=== PATIENT | female | born 1935 | race Caucasian/White ===

== ENCOUNTER 2017-09-11 09:47 | Emergency (ER) | payer MEDICARE, MEDICAID ==
[~2017-09-11] VITALS: Ht 157.5 cm; Wt 47.3 kg
[~2017-09-11 09:47] MED LIST: ALLEGRA 180MG180 MG PO; ASPIRIN 81M81 MG/TA2 PO; ATIVAN 0.50.5 MG/TAB PO; BENTYL 20MG20 MG/TAB PO; BREO IH; CALCIUM + D 6001 TA1 PO; CIPRO 500MG TA500 MG PO; CLARITIN 1010 MG/TAB PO; DIFLUCAN 100MG100 MG PO; DILANTIN 100MG100 MG PO; FLAGYL500 MG PO; FLAXSEED OIL1 CAP; FORTICAL200 IU/ACT NS; LEVAQUIN 5500 MG/TA1 PO; MIRALAX PA17 GM/Dose PO; NORCO 325 MG-51 TAB PO; OCUVITE1 TA1 PO; PHENOBARBITAL32.4 MG PO; PRAVACHOL 40MG40 MG PO; PRIL40 PO; PROAIR HFA0.09 MG/AC IH; REGLAN 10MG10 MG/TAB PO; REMERON 15M15 MG/TA1 PO; RT ADVAIR 228 DISKUS IH; RT SPIRIVA18 MCG IH; SINGULAIR 110 MG/TAB PO; TEARS NATURALE15 M1 OP; VITAMIN D2000 I1 PO; XANAX .25M0.25 MG/TA PO; ZITHROMAX 250M250 MG PO; ZOFRAN 4MG T4 MG/TAB PO; ZYRTEC 10MG10 MG PO; ZYRTEC5 MG PO; [UNRECOGNIZED DRUG - OTHER] OP
[2017-09-11 09:58] VITALS: TEMP 98
[2017-09-11] MEDS ORDERED: NORVASC 5MG5 MG/TAB PO (11:18)
[2017-09-11 11:40] LABS: BASO # 0.1 (0.0-0.2); BASO % 0.7 % (0.0-2.0); EOS # 0.1 (0.0-0.7); EOS % 0.7 % (0-4.0); GRAN # 9.3 (1.4-6.5); GRAN % 75.5 % (42.2-75.2); HEMATOCRIT 43.3 % (37.0-47.0); HEMOGLOBIN 14.3 g/dl (12.5-16.0); LYMPH # 1.9 (1.2-3.4); LYMPH % 15.4 % (20.0-51.0); MEAN CELL VOLUME 96 fl (80.0-100.0); MEAN CORPUSCULAR HEMOGLOBIN 32 pg (27.0-31.0); MEAN CORPUSCULAR HGB CONC 33 g/dl (33.0-37.0); MEAN PLATELET VOLUME 10.7 fl (7.4-10.4); MONO # 0.9 (0.1-0.6); MONO % 7.1 % (1.7-9.3); PLATELET COUNT 251 K/mm3 (130-400); RED BLOOD COUNT 4.53 M/mm3 (4.10-5.30); WHITE BLOOD COUNT 12.4 K/mm3 (4.8-10.8)
[2017-09-11 11:45] LABS: COLLECTION METHOD CLEAN CATCH
[2017-09-11 11:58] LABS: PH 7 (5-8); SQUAMOUS EPITHELIAL None Seen /hpf; URINE APPEARANCE Clear; URINE BACTERIA None Seen /hpf; URINE BILIRUBIN Negative (NEGATIVE); URINE BLOOD 2+ (NEGATIVE); URINE COLOR Straw; URINE GLUCOSE Negative (NEGATIVE); URINE KETONE Negative (NEGATIVE); URINE LEUKOCYTE ESTERASE Negative (NEGATIVE); URINE PROTEIN(semi-quant) Negative (NEGATIVE); URINE RBC 0-2 /hpf; URINE UROBILINOGEN Negative (NEGATIVE); URINE WBC 0-2 /hpf
[2017-09-11 11:59] LABS: ALANINE AMINOTRANSFERASE 24 U/L (9-52); ALBUMIN 4.9 gm/dL (3.5-5.0); ALKALINE PHOSPHATASE 136 U/L (50-136); ANION GAP 11 mmol/L (7-16); BILIRUBIN,TOTAL 0.9 mg/dL (0.0-1.0); BLOOD UREA NITROGEN 12 mg/dL (7-17); C-REACTIVE PROTEIN < 0.5 mg/dL (0.0-0.9); CALCIUM 9.7 mg/dL (8.4-10.2); CARBON DIOXIDE 24 mmol/L (22-30); CHLORIDE 103 mmol/L (98-107); CREATININE, serum 0.65 mg/dL (0.52-1.25); GLUCOSE 108 mg/dL (74-106); SODIUM 138 mmol/L (137-145); TOTAL PROTEIN 8.1 gm/dL (6.4-8.2)
[2017-09-11 13:38] VITALS: BP 149/78; PULSE 71
== END 2017-09-11 13:38 | disposition home or self-care (01) ==
LOC: COL.ER 09:47
PROVIDERS: Emergency Medicine
DX: K58.9 Irritable bowel syndrome, unspecified (principal); K59.00 Constipation, unspecified; I10 Essential (primary) hypertension; Z90.49 Acquired absence of other specified parts of digestive tract; Z79.82 Long term (current) use of aspirin
CPT/HCPCS: J1885; J7030; J7050; Q9967

== ENCOUNTER 2018-08-16 11:30 | Inpatient (IN) | payer MEDICARE, MEDICAID ==
[~2018-08-16] VITALS: Ht 157.5 cm; Wt 46.9 kg
[~2018-08-16 11:30] MED LIST changes: +NORVASC 5MG5 MG/TAB PO
[2018-08-16] MEDS ORDERED: TRAVATAN Z 5 ML5 ML OU (13:20)
[2018-08-16] MEDS ORDERED: BETIMOL 0.5% OPH5 ML OU (13:20)
[2018-08-16] MEDS ORDERED: TYLENOL 325MG325 MG PO (13:21)
[2018-08-16] MEDS ORDERED: ULTRAM 50MG TAB50 MG PO (13:23)
[2018-08-16] MEDS ORDERED: DECADRON 4MG TAB4 MG PO (13:24)
[2018-08-16 13:48] LABS: COLLECTION METHOD CLEAN CATCH
[2018-08-16 13:50] LABS: BASO % 0.1 % (0.0-2.0); GRAN # 18.1 (1.4-6.5); GRAN % 85.1 % (42.2-75.2); HEMATOCRIT 39.3 % (37.0-47.0); HEMOGLOBIN 12.8 g/dl (12.5-16.0); LYMPH # 1.8 (1.2-3.4); LYMPH % 8.6 % (20.0-51.0); MEAN CELL VOLUME 94 fl (80.0-100.0); MEAN CORPUSCULAR HEMOGLOBIN 31 pg (27.0-31.0); MEAN CORPUSCULAR HGB CONC 33 g/dl (33.0-37.0); MEAN PLATELET VOLUME 10.3 fl (7.4-10.4); MONO % 4.9 % (1.7-9.3); PLATELET COUNT 349 K/mm3 (130-400); REDCELL DISTRIBUTION WIDTH-CV 13.7 % (11.5-14.5)
[2018-08-16 13:56] LABS: MUCOUS Present /lpf; PH 7 (5-8); SQUAMOUS EPITHELIAL None Seen /hpf; URINE APPEARANCE Clear; URINE BACTERIA None Seen /hpf; URINE BILIRUBIN Negative (NEGATIVE); URINE BLOOD 1+ (NEGATIVE); URINE COLOR Yellow; URINE GLUCOSE Negative (NEGATIVE); URINE KETONE Negative (NEGATIVE); URINE LEUKOCYTE ESTERASE Negative (NEGATIVE); URINE NITRATE Negative (NEGATIVE); URINE PROTEIN(semi-quant) Negative (NEGATIVE); URINE UROBILINOGEN Negative (NEGATIVE)
[2018-08-16 14:03] LABS: ALANINE AMINOTRANSFERASE 23 U/L (9-52); ALBUMIN 4.2 gm/dL (3.5-5.0); ALKALINE PHOSPHATASE 106 U/L (50-136); ANION GAP 7 mmol/L (7-16); AST,SGOT 26 U/L (15-37); BILIRUBIN,TOTAL 0.5 mg/dL (0.0-1.0); BLOOD UREA NITROGEN 19 mg/dL (7-17); C-REACTIVE PROTEIN 0.9 mg/dL (0.0-0.9); CALCIUM 9.4 mg/dL (8.4-10.2); CARBON DIOXIDE 30 mmol/L (22-30); CHLORIDE 93 mmol/L (98-107); CREATININE, serum 0.64 mg/dL (0.52-1.25); GLUCOSE 115 mg/dL (74-106); POTASSIUM 4.6 mmol/L (3.4-5.0); SODIUM 130 mmol/L (137-145); TOTAL PROTEIN 7.6 gm/dL (6.4-8.2)
[2018-08-16 14:31] LABS: PHENYTOIN (DILANTIN) < 3.0 ug/mL (10.0-20.0)
[2018-08-16 20:50] VITALS: BP 153/75; PULSE 73; TEMP 97.9
[2018-08-17] VITALS (7 sets, daily range): BP systolic 134–151; BP diastolic 57–73; PULSE 70–82; TEMP 97.7–98.4
[2018-08-18 00:14] VITALS: BP 138/83; PULSE 70; TEMP 97.7
[2018-08-18 04:10] VITALS: BP 157/59; PULSE 64; TEMP 98.1
[2018-08-18 06:17] LABS: CALCIUM 8.6 mg/dL (8.4-10.2); CREATININE, serum 0.5 mg/dL (0.52-1.25); MAGNESIUM 2.3 mg/dL (1.6-2.3)
[2018-08-18 06:24] LABS: PRE ALBUMIN 19.8 mg/dL (17.6-36.0)
[2018-08-18 06:40] LABS: HEMOGLOBIN 11.9 g/dl (12.5-16.0); MEAN CELL VOLUME 94 fl (80.0-100.0); MEAN CORPUSCULAR HEMOGLOBIN 31 pg (27.0-31.0); MEAN CORPUSCULAR HGB CONC 33 g/dl (33.0-37.0); MEAN PLATELET VOLUME 11.2 fl (7.4-10.4); PLATELET COUNT 281 K/mm3 (130-400); RED BLOOD COUNT 3.83 M/mm3 (4.10-5.30); REDCELL DISTRIBUTION WIDTH-CV 13.7 % (11.5-14.5)
[2018-08-18 06:41] LABS: HEMATOCRIT 36.1 % (37.0-47.0)
[2018-08-18 07:34] LABS: BAND 5 % (0-10); BASOPHIL 1 % (0-2); LYMPHOCYTE 24 % (20.0-51.0); METAMYELOCYTE 1 % (0-0); NEUTROPHILS 65 % (42.0-75.2); PLATELET ESTIMATE NORMAL (NORMAL)
[2018-08-18 08:17] VITALS: BP 146/67; PULSE 66; TEMP 98
[2018-08-18 11:32] VITALS: BP 127/73; PULSE 93; TEMP 97.7
[2018-08-18 16:09] VITALS: BP 155/63; PULSE 70; TEMP 97.9
[2018-08-18 21:44] VITALS: BP 164/73; PULSE 63; TEMP 98.2
[2018-08-19 04:45] VITALS: BP 140/71; PULSE 67; TEMP 98.2
[2018-08-19 06:54] LABS: HEMATOCRIT 37.1 % (37.0-47.0); HEMOGLOBIN 12.2 g/dl (12.5-16.0); MEAN CELL VOLUME 93 fl (80.0-100.0); MEAN CORPUSCULAR HEMOGLOBIN 31 pg (27.0-31.0); MEAN CORPUSCULAR HGB CONC 33 g/dl (33.0-37.0); MEAN PLATELET VOLUME 11.1 fl (7.4-10.4); PLATELET COUNT 300 K/mm3 (130-400); RED BLOOD COUNT 3.98 M/mm3 (4.10-5.30); REDCELL DISTRIBUTION WIDTH-CV 13.7 % (11.5-14.5)
[2018-08-19 07:05] VITALS: BP 152/77; PULSE 80; TEMP 98.2
[2018-08-19 07:13] LABS: CALCIUM 8.6 mg/dL (8.4-10.2); CREATININE, serum 0.51 mg/dL (0.52-1.25); POTASSIUM 3.7 mmol/L (3.4-5.0)
[2018-08-19 07:39] LABS: EOSINOPHIL 1 % (0-4); LYMPHOCYTE 35 % (20.0-51.0); NEUTROPHILS 54 % (42.0-75.2); PLATELET ESTIMATE NORMAL (NORMAL)
[2018-08-19] MEDS ORDERED: FLOMAX 0.40.4 MG/CAP PO (09:42)
[2018-08-19] MEDS ORDERED: DULCOLAX S10 MG/SUPP RC (09:43)
[2018-08-19] MEDS ORDERED: COLACE 100100 MG/CAP PO (09:43)
[2018-08-19] MEDS ORDERED: SENNA-LAX8.6 MG PO (09:43)
[2018-08-19] MEDS ORDERED: DECADRON 1MG TAB1 MG PO (09:46)
[2018-08-19] MEDS ORDERED: ATIVAN 0.50.5 MG/TAB PO (09:47)
[2018-08-19] MEDS ORDERED: ULTRAM 50MG TAB50 MG PO (09:48)
[2018-08-19 11:13] VITALS: BP 130/62; PULSE 78; TEMP 97.8
[2018-08-19] MEDS ORDERED: REFRESH OPTIVE10 M2 OP (12:15)
[2018-08-19] MEDS ORDERED: IPRATROPIUM BROM3 M1 IH (12:24)
[2018-08-19 13:38] VITALS: BP 130/62; PULSE 78; TEMP 97.8
== END 2018-08-19 13:53 | disposition home or self-care (01) | DRG 392 ==
LOC: COL.ER 11:30 → OB 18:45 → MEDICAL 08-17 11:45
PROVIDERS: Emergency Medicine; Internal Medicine; Physician Assistant
DX: K59.09 Other constipation (principal); E87.1 Hypo-osmolality and hyponatremia; E44.0 Moderate protein-calorie malnutrition; Z68.1 Body mass index [BMI] 19.9 or less, adult; K31.89 Other diseases of stomach and duodenum; R33.0 Drug induced retention of urine; T40.4X5A Adverse effect of other synthetic narcotics, initial encounter; D32.0 Benign neoplasm of cerebral meninges; R29.6 Repeated falls; Z91.81 History of falling; E87.8 Other disorders of electrolyte and fluid balance, not elsewhere classified; I10 Essential (primary) hypertension; J44.9 Chronic obstructive pulmonary disease, unspecified; G40.909 Epilepsy, unspecified, not intractable, without status epilepticus; D72.828 Other elevated white blood cell count; T38.0X5A Adverse effect of glucocorticoids and synthetic analogues, initial encounter; H35.30 Unspecified macular degeneration
CPT/HCPCS: 99222-AI; 99232-AI; 99239; J1650; J2212; J2405; J7030; J8540; Q9967

== ENCOUNTER → 2018-12-23 | Outpatient (REF) ==
[~2018-12-23] MED LIST changes: +BETIMOL 0.5% OPH5 ML OU; +COLACE 100100 MG/CAP PO; +DECADRON 1MG TAB1 MG PO; +DECADRON 4MG TAB4 MG PO; +DULCOLAX S10 MG/SUPP RC; +FLOMAX 0.40.4 MG/CAP PO; +IPRATROPIUM BROM3 M1 IH; +REFRESH OPTIVE10 M2 OP; +SENNA-LAX8.6 MG PO; +TRAVATAN Z 5 ML5 ML OU; +TYLENOL 325MG325 MG PO; +ULTRAM 50MG TAB50 MG PO
[2018-12-25 08:45] LABS: COLLECTION METHOD CLEAN CATCH
[2018-12-25 10:16] LABS: URINE COLOR Yellow
[2018-12-25 10:17] LABS: PH 5 (5-8); URINE APPEARANCE Cloudy; URINE BILIRUBIN Negative (NEGATIVE); URINE BLOOD 2+ (NEGATIVE); URINE GLUCOSE Negative (NEGATIVE); URINE KETONE Negative (NEGATIVE); URINE NITRATE Negative (NEGATIVE); URINE PROTEIN(semi-quant) Negative (NEGATIVE); URINE UROBILINOGEN Negative (NEGATIVE)
[2018-12-25 10:18] LABS: MUCOUS Present /lpf; URINE LEUKOCYTE ESTERASE 3+ (NEGATIVE); URINE WBC >50 /hpf
== END ==
LOC: COL.LAB 08:42
PROVIDERS: Family Medicine
DX: R33.9 Retention of urine, unspecified (principal)

== ENCOUNTER 2019-01-04 18:44 | Inpatient (IN) | payer MEDICARE, MEDICAID ==
[~2019-01-04] VITALS: Ht 152.4 cm; Wt 49.5 kg
[2019-01-04] VITALS (43 sets, daily range): BP systolic 180; BP diastolic 96; PULSE 102; TEMP 98.6; O2SAT 91–97
[2019-01-04] MEDS ORDERED: STOOL SOFTENER240 M1 PO (19:26)
[2019-01-04 19:28] LABS: BASO # 0.1 (0.0-0.2); BASO % 0.6 % (0.0-2.0); EOS # 0.1 (0.0-0.7); EOS % 1.2 % (0-4.0); GRAN # 7.1 (1.4-6.5); GRAN % 72.3 % (42.2-75.2); HEMATOCRIT 39.5 % (37.0-47.0); HEMOGLOBIN 12.8 g/dl (12.5-16.0); LYMPH # 1.8 (1.2-3.4); LYMPH % 17.9 % (20.0-51.0); MEAN CELL VOLUME 95 fl (80.0-100.0); MEAN CORPUSCULAR HEMOGLOBIN 31 pg (27.0-31.0); MEAN CORPUSCULAR HGB CONC 32 g/dl (33.0-37.0); MEAN PLATELET VOLUME 10.8 fl (7.4-10.4); MONO # 0.7 (0.1-0.6); MONO % 7.1 % (1.7-9.3); PLATELET COUNT 290 K/mm3 (130-400); RED BLOOD COUNT 4.17 M/mm3 (4.10-5.30); REDCELL DISTRIBUTION WIDTH-CV 13.4 % (11.5-14.5)
[2019-01-04] MEDS ORDERED: MOBIC 7.5MG7.5 MG PO (19:31)
[2019-01-04 19:36] LABS: ALBUMIN 3.9 gm/dL (3.5-5.0); BILIRUBIN,TOTAL 0.4 mg/dL (0.0-1.0); CALCIUM 9.3 mg/dL (8.4-10.2); CREATININE, serum 0.71 mg/dL (0.52-1.25); POTASSIUM 3.9 mmol/L (3.4-5.0); TOTAL PROTEIN 7.1 gm/dL (6.4-8.2)
[2019-01-04 19:38] LABS: PROTHROMBIN TIME 11.7 SECONDS (9.7-12.8)
[2019-01-04 19:41] LABS: PARTIAL THROMBOPLASTIN TIME 32.1 SECONDS (26.0-37.0)
[2019-01-04 21:32] LABS: COLLECTION METHOD CATHETER
[2019-01-04 21:54] LABS: MUCOUS Present /lpf; PH 6 (5-8); SQUAMOUS EPITHELIAL 0-2 /hpf; URINE APPEARANCE Clear; URINE BACTERIA None Seen /hpf; URINE BILIRUBIN Negative (NEGATIVE); URINE BLOOD 1+ (NEGATIVE); URINE COLOR Yellow; URINE GLUCOSE Negative (NEGATIVE); URINE KETONE Negative (NEGATIVE); URINE LEUKOCYTE ESTERASE Negative (NEGATIVE); URINE NITRATE Negative (NEGATIVE); URINE PROTEIN(semi-quant) Negative (NEGATIVE); URINE UROBILINOGEN Negative (NEGATIVE)
--- NOTE | 2019-01-04 22:30 | NUR ---
Arrived to the unit via stretcher; daughter who is DPOA at bedside. Patient mumbles and makes eye contact but not appropriately communicating with speech. Neuro assessemnt demonstrated no movement of right upper and lower exremity. Able to lift and hold left arm and movement of left leg noted. PERRL. Received health information about patient via daugher. Daughter requested this nurse not release information to the [facility] at this time and until further notice.
[2019-01-04] MEDS ORDERED: DULCOLAX STOOL100 MG PO (22:47)
[2019-01-04] MEDS ORDERED: ATIVAN 0.50.5 MG/TAB PO (22:56)
[2019-01-05] VITALS (724 sets, daily range): BP systolic 118–163; BP diastolic 57–87; PULSE 90–138; TEMP 97.6–98.6; O2SAT 61–100
--- NOTE | 2019-01-05 02:00 | NUR ---
Right pupil noted to be approximately 1mm smaller than left. Pupils round and reactive to light. Neuro checks unchanged otherwise. Hospitalist notified; no further orders at this time.
--- NOTE | 2019-01-05 05:03 | NUR ---
Mitzi-care performed; patient alert and responsive, however continues to be unable to verbalize thoughts coherently. [place] mumbling or making incomprehensible noises when attempting to communicate.
[2019-01-05 06:09] LABS: BASO % 0.2 % (0.0-2.0); GRAN # 6.9 (1.4-6.5); GRAN % 84.9 % (42.2-75.2); HEMATOCRIT 38.2 % (37.0-47.0); HEMOGLOBIN 12.4 g/dl (12.5-16.0); LYMPH % 12.1 % (20.0-51.0); MEAN CELL VOLUME 95 fl (80.0-100.0); MEAN CORPUSCULAR HEMOGLOBIN 31 pg (27.0-31.0); MEAN CORPUSCULAR HGB CONC 33 g/dl (33.0-37.0); MEAN PLATELET VOLUME 10.9 fl (7.4-10.4); MONO # 0.2 (0.1-0.6); MONO % 1.9 % (1.7-9.3); PLATELET COUNT 296 K/mm3 (130-400); RED BLOOD COUNT 4.03 M/mm3 (4.10-5.30); REDCELL DISTRIBUTION WIDTH-CV 13.3 % (11.5-14.5)
[2019-01-05 06:36] LABS: ALBUMIN 3.5 gm/dL (3.5-5.0); BILIRUBIN,TOTAL 0.4 mg/dL (0.0-1.0); CALCIUM 9.2 mg/dL (8.4-10.2); CREATININE, serum 0.49 mg/dL (0.52-1.25); POTASSIUM 4.1 mmol/L (3.4-5.0); TOTAL PROTEIN 6.7 gm/dL (6.4-8.2)
--- NOTE | 2019-01-05 07:40 | NUR ---
Bedside report recieved from RADHA Henson.
--- NOTE | 2019-01-05 07:41 | NUR ---
Bedside report given to RADHA Silverman. Patient care transfered.
--- NOTE | 2019-01-05 08:15 | NUR ---
Assessment complete, patient resting in bed, alert/oriented to name only, patient squeezes with left hand only. Bed alarm on for patient safety. Seizure precautions in place. Call light within reach.
--- NOTE | 2019-01-05 13:11 | NUR ---
Attemped to call RADHA Pereyra (Palliative Care) multiple times.
--- NOTE | 2019-01-05 14:59 | NUR ---
Patient to MRI via cart.
--- NOTE | 2019-01-05 15:35 | NUR ---
Patient return from MRI.
--- NOTE | 2019-01-05 15:54 | NUR ---
Sherice,RT here for EEG.
--- NOTE | 2019-01-05 16:29 | NUR ---
SW and SW student attended clinical rounding and met with patient and daughter to discuss discharge planning. Patient is currently at [facility]. Patients PCP is Dr Yan and she obtains her medications from [facility]. Patients DPOA is on EMR. Patients daughter is interested in talking with Pallative care and moving patient to comfort care. SW attempted to call Hafsa. SW will continue to follow to assist in discharge needs.
--- NOTE | 2019-01-05 17:21 | NUR ---
Patient awake and alert, knows she is in [place], "wants to go home" when asked if she wanted some jello, she states "NO, I hate jejulianao."
--- NOTE | 2019-01-05 17:45 | NUR ---
Patient daughter was called regarding "diet restrictions at the [facility]." She states she has no restrictions.
--- NOTE | 2019-01-05 17:50 | NUR ---
Patient trying to climb out of bed, bed alarm and seizure precautions remain in place.
--- NOTE | 2019-01-05 18:40 | NUR ---
Patient attempting to climb out of bed, pulling at lines, pulling at this RN's badge, trying to scratch, patient even moving her right arm that was flaccid earlier in the day.
--- NOTE | 2019-01-05 18:52 | NUR ---
Patient continues to pull at lines, and tries to climb out of bed, mitts applied.
--- NOTE | 2019-01-05 19:00 | NUR ---
Bedside report given to RADHA Henson. Patient states "leave me alone."
--- NOTE | 2019-01-05 19:00 | NUR ---
Bedside report received from RADHA Silverman. Patient care received.
--- NOTE | 2019-01-05 20:00 | NUR ---
Called hospitalist to update regarding patient's restlessness and agitation. Requested haldol. Received order for EKG to check QTC prior to starting medication. QTC at upper limits of normal so hospitalist ordered PRN oral seroquel. Patient not cooperative at this time and unable to perform full assessment and neuro checks. Observed moving bilateral upper extremities although continues to favor left arm. Patient is alert, but confused and suspicious. However, she was able to remember this staff members name approximately 30 minutes after my introduction.
--- NOTE | 2019-01-05 20:45 | NUR ---
Patient restess and agitated in bed. Soft hand mitts on due to continued pulling at lines and tubing. Patient attempting to pull and tug at mitts. Patient upset and stated "take these off!" Explained to patient why these are necessary at this time. When attempting to approach patient for cares or to administer medications patient hits at staff with hands and yells at staff. Patient appears suspicious of staff activity. Attempting to re-orient patient and explain when is being done. Unable to perform complete assessment or neuro checks at this time due to uncooperative behavior. Will re-attempt assessment.
[2019-01-06] VITALS (531 sets, daily range): BP systolic 120–171; BP diastolic 64–136; PULSE 104–128; TEMP 97.7–98.4; O2SAT 66–100
--- NOTE | 2019-01-06 01:05 | NUR ---
Patient continues to be suspicious of staff and will lash out when cares are attempted. Will communicate verbally with staff but sentences are fragmented and difficult to understand. Patient does have brief moments where she relatively cooperative. Cares attempted at these times.
--- NOTE | 2019-01-06 06:15 | NUR ---
Patient more cooperative this morning; allowed lab to draw blood without difficulty and staff to perform per-care. Cognition and speech seem slightly improved also. Patient able to ask this nurse questions which were appropriate to the situation and speech was more clear. Will continue to monitor.
[2019-01-06 06:22] LABS: BASO % 0.2 % (0.0-2.0); GRAN # 15.8 (1.4-6.5); GRAN % 87.3 % (42.2-75.2); HEMATOCRIT 37.3 % (37.0-47.0); HEMOGLOBIN 12.5 g/dl (12.5-16.0); LYMPH # 1.6 (1.2-3.4); MEAN CELL VOLUME 93 fl (80.0-100.0); MEAN CORPUSCULAR HEMOGLOBIN 31 pg (27.0-31.0); MEAN CORPUSCULAR HGB CONC 34 g/dl (33.0-37.0); MEAN PLATELET VOLUME 10.7 fl (7.4-10.4); MONO # 0.5 (0.1-0.6); MONO % 2.8 % (1.7-9.3); PLATELET COUNT 333 K/mm3 (130-400); RED BLOOD COUNT 4.02 M/mm3 (4.10-5.30); REDCELL DISTRIBUTION WIDTH-CV 13.8 % (11.5-14.5)
[2019-01-06 06:36] LABS: CALCIUM 9.4 mg/dL (8.4-10.2); CREATININE, serum 0.46 mg/dL (0.52-1.25); POTASSIUM 3.8 mmol/L (3.4-5.0)
--- NOTE | 2019-01-06 13:01 | NUR ---
TEGAN called patients daughter Aysha [phone] to discuss pallative care vs shelter care at [facility]. Patients daughter would like to talk to the Dr about the test updates before making a decision. TEGAN provided Dr Champion with phone number and he will call when he can. TEGAN called patients daughter again who said she is open to patient going back to [facility] but would still like to talk to dr. WIll continue to follow.
--- NOTE | 2019-01-06 13:29 | NUR ---
SW student faxed updates to Hung at [facility].
--- NOTE | 2019-01-06 13:52 | NUR ---
TEGAN talked with uHng at [facility]. They are able to take patient back for prison care at discharge.
--- NOTE | 2019-01-06 15:55 | NUR ---
TEGAN called patients daughter to inform her of PT and OT recommendations of LTC. She is agreeable to her mother returning to [facility] tomorrow for half-way care and wants to wait for pallative care. TEGAN informed dr Chitnis. Persaud from [facility] is agreeable.
--- NOTE | 2019-01-06 19:05 | NUR ---
Bedside report received from RADHA Coley. Patient care received.
--- NOTE | 2019-01-06 20:05 | NUR ---
Assessment complete; patient confused but alert to person. Able to follow simple commands, and has been cooperative with cares. Some restlessness still noted and has been tugging and pulling at mitts. Day shift nurse reported that he took them off and she had pulled off stat lock for gibson and was pulling at other cords. Will keep them on for now but will continue to assess for their necessity. Assisted with eating dinner; consummed approximately 25% of meal.
--- NOTE | 2019-01-06 23:00 | NUR ---
Staff arrived to unit to transfer patient to the medical floor. Belonging sent with patient. VS stable upon transfer.
--- NOTE | 2019-01-07 01:00 | NUR ---
Patient transferred from ICU to surgical bed 325 via bed at 2315. Assessment completed. Patient is alert and answers some questions appropriately at this time. VSS, on room air. Tele is maintained, HR is tachycardiac in the low 100's. Does not appear to be in any distress or pain. Hernandez catheter to DD with yellow clear urine draining. IVF infusing per orders. Patient had mitts on as it was reported she pulls at things. Stage 1 pressure ulcer noted to right buttock. Seizure precautions maintained. Bed is in a low position with bed alarm on and call light in reach.
--- NOTE | 2019-01-07 02:11 | NUR ---
Patient is restless in bed trying to get her mitts off and pulling at the bed sheets. Educated patient that mitts are on to prevent her from pulling on her IV and gibson catheter, patient stated "I don't have any of those things" while attempting to remove mitts. Patient is visible from the nurses station with fall precautions in place.
[2019-01-07 04:31] VITALS: BP 140/66; PULSE 70; TEMP 97.7
--- NOTE | 2019-01-07 06:08 | NUR ---
Patient has been resting for the past few hours, easily awakened and has been cooperative. VSS. Tele maintained. Does not appear to be in any distress or pain control. Hernandez catheter remains to DD with yellow clear urine draining. IVF infusing. Repositioned with assist x 1. Aspiration and seizure precautions remain in place. Bed is in a low position with bed alarm on and call light within reach.
[2019-01-07 06:34] LABS: BASO % 0.2 % (0.0-2.0); GRAN # 15.9 (1.4-6.5); GRAN % 82.8 % (42.2-75.2); HEMATOCRIT 39.6 % (37.0-47.0); HEMOGLOBIN 12.7 g/dl (12.5-16.0); LYMPH # 2.2 (1.2-3.4); LYMPH % 11.6 % (20.0-51.0); MEAN CELL VOLUME 96 fl (80.0-100.0); MEAN CORPUSCULAR HEMOGLOBIN 31 pg (27.0-31.0); MEAN CORPUSCULAR HGB CONC 32 g/dl (33.0-37.0); MEAN PLATELET VOLUME 11.1 fl (7.4-10.4); MONO # 0.9 (0.1-0.6); MONO % 4.6 % (1.7-9.3); PLATELET COUNT 369 K/mm3 (130-400); RED BLOOD COUNT 4.12 M/mm3 (4.10-5.30); REDCELL DISTRIBUTION WIDTH-CV 14.3 % (11.5-14.5)
[2019-01-07 06:47] LABS: CALCIUM 9.5 mg/dL (8.4-10.2); CREATININE, serum 0.59 mg/dL (0.52-1.25); POTASSIUM 4.1 mmol/L (3.4-5.0)
[2019-01-07 08:00] VITALS: BP 150/92; PULSE 85; TEMP 98.2
--- NOTE | 2019-01-07 08:30 | NUR ---
Patient in bed resting. Daughter at bedside. Alert and oriented to self. Seizure precautions in place. Daughter in room feeding her breakfast. Aspiration precautions in place. Hernandez to dependent drainge with clear yellow urine present. Denies pain or further needs at this time.
[2019-01-07] MEDS ORDERED: SEROQUEL50 MG PO (10:57)
[2019-01-07] MEDS ORDERED: KEPPRA 500MG500 MG PO (10:57)
[2019-01-07] MEDS ORDERED: PEPCID 20MG TAB20 MG PO (10:58)
[2019-01-07] MEDS ORDERED: DECADRON 4MG TAB4 MG PO (10:59)
[2019-01-07] MEDS ORDERED: ATIVAN 2MG/ML2 MG/ML IM (11:00)
[2019-01-07] MEDS ORDERED: ATIVAN 0.50.5 MG/TAB PO (11:00)
--- NOTE | 2019-01-07 11:13 | NUR ---
TEGAN met with patient and daughter to present IM and verbally discuss the contents. Patients daughter was agreeable and signed the form. Copy provided and original placed in chart. TEGAN called Hung at [facility] and set merchandise pickup/receiving associate time for 3pm. Hung informed patient doesnt have a wheelchair here. Patient is discharging back to [facility] for jail care today, 01/07/19.
[2019-01-07] MEDS ORDERED: TOPROL XL 25MG25 MG PO (11:53)
[2019-01-07 12:51] VITALS: BP 122/61; PULSE 82; TEMP 97.8
[2019-01-07 14:48] VITALS: BP 122/61; PULSE 82; TEMP 97.8
--- NOTE | 2019-01-07 15:45 | NUR ---
Patient out by wheelchair with [facility] tank truck driver. Report called to Maris GARCIA at [facility]. Assisted patient to dress and pivot transfer into wheelchair. INT discontinued to left forarm, catheter tip intact. Denies further needs at this time.
== END 2019-01-07 15:50 | DRG 100 ==
LOC: COL.ER 18:44 → ICU 21:05 → SURG 01-06 23:41
PROVIDERS: Emergency Medicine; Hospitalist; Nurse Practitioner Family
DX: G40.409 Other generalized epilepsy and epileptic syndromes, not intractable, without status epilepticus (principal); G93.6 Cerebral edema; F05 Delirium due to known physiological condition; E87.2 Acidosis; D32.0 Benign neoplasm of cerebral meninges; R73.9 Hyperglycemia, unspecified; I10 Essential (primary) hypertension; Z66 Do not resuscitate; J44.9 Chronic obstructive pulmonary disease, unspecified; H35.30 Unspecified macular degeneration; H40.9 Unspecified glaucoma; R13.10 Dysphagia, unspecified
CPT/HCPCS: 99223-AI; 99232-AI; 99239; A9585; J0360; J1100; J1953; J2060; J7030; J8540

== ENCOUNTER → 2019-01-11 | Outpatient (CLI) | payer MEDICARE, MEDICAID ==
[~2019-01-11] MED LIST changes: +ATIVAN 2MG/ML2 MG/ML IM; +DULCOLAX STOOL100 MG PO; +KEPPRA 500MG500 MG PO; +MOBIC 7.5MG7.5 MG PO; +PEPCID 20MG TAB20 MG PO; +SEROQUEL50 MG PO; +STOOL SOFTENER240 M1 PO; +TOPROL XL 25MG25 MG PO
[2019-01-11 16:48] LABS: BASO # 0.1 (0.0-0.2); BASO % 0.3 % (0.0-2.0); EOS # 0.4 (0.0-0.7); EOS % 1.7 % (0-4.0); GRAN # 15.7 (1.4-6.5); GRAN % 75.2 % (42.2-75.2); HEMATOCRIT 42.7 % (37.0-47.0); HEMOGLOBIN 13.6 g/dl (12.5-16.0); LYMPH # 2.9 (1.2-3.4); MEAN CELL VOLUME 98 fl (80.0-100.0); MEAN CORPUSCULAR HEMOGLOBIN 31 pg (27.0-31.0); MEAN CORPUSCULAR HGB CONC 32 g/dl (33.0-37.0); MEAN PLATELET VOLUME 12.3 fl (7.4-10.4); MONO # 1.3 (0.1-0.6); MONO % 6.3 % (1.7-9.3); PLATELET COUNT 314 K/mm3 (130-400); RED BLOOD COUNT 4.37 M/mm3 (4.10-5.30); REDCELL DISTRIBUTION WIDTH-CV 14.5 % (11.5-14.5)
[2019-01-11 16:54] LABS: CALCIUM 8.7 mg/dL (8.4-10.2); CREATININE, serum 0.54 mg/dL (0.52-1.25); POTASSIUM 4.2 mmol/L (3.4-5.0)
== END ==
LOC: ZCOL.LAB 15:53
PROVIDERS: Family Medicine
DX: M62.81 Muscle weakness (generalized) (principal)

== ENCOUNTER → 2019-01-31 | Outpatient (REF) ==
[2019-01-31 15:31] LABS: COLLECTION METHOD CLEAN CATCH
[2019-01-31 15:58] LABS: MUCOUS Present /lpf; PH 5 (5-8); URINE APPEARANCE Cloudy; URINE BACTERIA Moderate /hpf; URINE BILIRUBIN Negative (NEGATIVE); URINE BLOOD 2+ (NEGATIVE); URINE CALCIUM OXALATE CRYSTAL Present /hpf; URINE COLOR Yellow; URINE GLUCOSE Negative (NEGATIVE); URINE KETONE Negative (NEGATIVE); URINE LEUKOCYTE ESTERASE Trace (NEGATIVE); URINE NITRATE Negative (NEGATIVE); URINE PROTEIN(semi-quant) Negative (NEGATIVE)
== END ==
LOC: ZCOL.LAB 15:30
PROVIDERS: Family Medicine
DX: N39.0 Urinary tract infection, site not specified (principal)

== ENCOUNTER → 2019-02-01 | Outpatient (CLI) | payer MEDICARE, MEDICAID ==
[2019-02-01 13:35] LABS: BASO # 0.1 (0.0-0.2); BASO % 0.6 % (0.0-2.0); EOS # 0.2 (0.0-0.7); GRAN # 6.3 (1.4-6.5); GRAN % 67.9 % (42.2-75.2); HEMOGLOBIN 12.8 g/dl (12.5-16.0); LYMPH # 1.8 (1.2-3.4); LYMPH % 19.6 % (20.0-51.0); MEAN CELL VOLUME 97 fl (80.0-100.0); MEAN CORPUSCULAR HEMOGLOBIN 31 pg (27.0-31.0); MEAN CORPUSCULAR HGB CONC 32 g/dl (33.0-37.0); MEAN PLATELET VOLUME 12.8 fl (7.4-10.4); MONO # 0.8 (0.1-0.6); PLATELET COUNT 307 K/mm3 (130-400); RED BLOOD COUNT 4.12 M/mm3 (4.10-5.30); REDCELL DISTRIBUTION WIDTH-CV 14.2 % (11.5-14.5)
== END ==
LOC: ZCOL.LAB 12:35
PROVIDERS: Family Medicine
DX: I10 Essential (primary) hypertension (principal)

== ENCOUNTER → 2019-02-02 | Outpatient (CLI) | payer MEDICARE, MEDICAID ==
[2019-02-02 11:51] LABS: CALCIUM 9.5 mg/dL (8.4-10.2); CREATININE, serum 0.73 (0.52-1.25); POTASSIUM 3.8 mmol/L (3.4-5.0)
== END ==
LOC: COL.LAB 11:03
PROVIDERS: Family Medicine
DX: M62.81 Muscle weakness (generalized) (principal)

== ENCOUNTER 2019-03-28 16:02 | Emergency (ER) | payer MEDICARE, MEDICAID ==
[2019-03-28 16:15] VITALS: TEMP 98.3
[2019-03-28 16:54] LABS: BASO # 0.1 (0.0-0.2); BASO % 0.5 % (0.0-2.0); EOS # 0.1 (0.0-0.7); EOS % 0.8 % (0-4.0); GRAN # 10.5 (1.4-6.5); HEMATOCRIT 41.9 % (37.0-47.0); HEMOGLOBIN 13.4 g/dl (12.5-16.0); LYMPH # 1.3 (1.2-3.4); LYMPH % 10.3 % (20.0-51.0); MEAN CELL VOLUME 95 fl (80.0-100.0); MEAN CORPUSCULAR HEMOGLOBIN 30 pg (27.0-31.0); MEAN CORPUSCULAR HGB CONC 32 g/dl (33.0-37.0); MEAN PLATELET VOLUME 10.9 fl (7.4-10.4); MONO # 0.9 (0.1-0.6); MONO % 6.9 % (1.7-9.3); PLATELET COUNT 224 K/mm3 (130-400); RED BLOOD COUNT 4.42 M/mm3 (4.10-5.30); REDCELL DISTRIBUTION WIDTH-CV 13.8 % (11.5-14.5)
[2019-03-28 16:55] LABS: COLLECTION METHOD CLEAN CATCH
[2019-03-28 17:02] LABS: ALANINE AMINOTRANSFERASE < 6 U/L (9-52); ALBUMIN 3.7 gm/dL (3.5-5.0); ALKALINE PHOSPHATASE 91 U/L (50-136); ANION GAP 11 mmol/L (7-16); AST,SGOT 17 U/L (15-37); BILIRUBIN,TOTAL 0.4 mg/dL (0.0-1.0); BLOOD UREA NITROGEN 23 mg/dL (7-17); CALCIUM 9.4 mg/dL (8.4-10.2); CARBON DIOXIDE 23 mmol/L (22-30); CHLORIDE 108 mmol/L (98-107); GLUCOSE 126 mg/dL (74-106); POTASSIUM 3.7 mmol/L (3.4-5.0); SODIUM 141 mmol/L (137-145); TOTAL PROTEIN 6.6 gm/dL (6.4-8.2)
[2019-03-28 17:05] LABS: MUCOUS Present /lpf; PH 6 (5-8); SQUAMOUS EPITHELIAL 0-2 /hpf; URINE APPEARANCE Clear; URINE BACTERIA None Seen /hpf; URINE BILIRUBIN Negative (NEGATIVE); URINE BLOOD 1+ (NEGATIVE); URINE COLOR Yellow; URINE GLUCOSE Negative (NEGATIVE); URINE KETONE Trace (NEGATIVE); URINE LEUKOCYTE ESTERASE Trace (NEGATIVE); URINE NITRATE Negative (NEGATIVE); URINE PROTEIN(semi-quant) Negative (NEGATIVE); URINE UROBILINOGEN Negative (NEGATIVE)
[2019-03-28 17:18] LABS: PROLACTIN 12.8 ng/mL (3.0-18.6)
[2019-03-28 17:18] LABS: ARTERIAL BLD GAS O2 SATURATION 95.4 % (92-100); ARTERIAL BLD GAS TCO2 CT 25.6; ARTERIAL BLOOD GAS BASE EXCESS 0.7 (-2-2); ARTERIAL BLOOD GAS HCO3 24.5 meq/L (22-26); ARTERIAL BLOOD GAS PCO2 36.5 mmHg (35-45); ARTERIAL BLOOD GAS PO2 80.6 mmHg (80-100); ARTERIAL BLOOD GAS pH 7.45 (7.35-7.45)
[2019-03-28 18:08] LABS: ARTERIAL BLD GAS TCO2 CT 19.8; ARTERIAL BLOOD GAS BASE EXCESS -3.2 (-2-2); ARTERIAL BLOOD GAS PCO2 26.9 mmHg (35-45); ARTERIAL BLOOD GAS PO2 69.1 mmHg (80-100); ARTERIAL BLOOD GAS pH 7.47 (7.35-7.45)
[2019-03-28] MEDS ORDERED: DECADRON 4MG TAB4 MG PO (18:33)
[2019-03-28 21:25] VITALS: BP 129/66; PULSE 78
== END 2019-03-28 21:26 | disposition home or self-care (01) ==
LOC: COL.ER 16:02
PROVIDERS: Family Medicine
DX: D32.9 Benign neoplasm of meninges, unspecified (principal); G81.91 Hemiplegia, unspecified affecting right dominant side; G40.909 Epilepsy, unspecified, not intractable, without status epilepticus; Z87.891 Personal history of nicotine dependence
CPT/HCPCS: J1100; J7030

== ENCOUNTER → 2019-04-13 | Outpatient (CLI) | payer MEDICARE, MEDICAID ==
[2019-04-13 03:00] LABS: COLLECTION METHOD CLEAN CATCH
[2019-04-13 03:16] LABS: AMORPHOUS CRYSTAL Present /uL; MUCOUS Present /lpf; PH 7 (5-8); SQUAMOUS EPITHELIAL 0-2 /hpf; URINE APPEARANCE Cloudy; URINE BACTERIA Rare /hpf; URINE BILIRUBIN Negative (NEGATIVE); URINE BLOOD 1+ (NEGATIVE); URINE COLOR Yellow; URINE GLUCOSE Negative (NEGATIVE); URINE KETONE Negative (NEGATIVE); URINE LEUKOCYTE ESTERASE 2+ (NEGATIVE); URINE NITRATE Negative (NEGATIVE); URINE PROTEIN(semi-quant) Negative (NEGATIVE); URINE RBC 0-2 /hpf; URINE TRIPLE PHOSPHATE CRYSTAL Present /hpf
== END ==
LOC: COL.LAB 02:20
PROVIDERS: Internal Medicine Nephrology
DX: N39.0 Urinary tract infection, site not specified (principal)

== ENCOUNTER → 2019-05-16 | Outpatient (CLI) | payer MEDICARE, MEDICAID ==
[2019-05-16 16:40] LABS: COLLECTION METHOD CATHETER
[2019-05-16 16:49] LABS: MUCOUS Present /lpf; PH 7 (5-8); SQUAMOUS EPITHELIAL 0-2 /hpf; URINE APPEARANCE Hazy; URINE BACTERIA None Seen /hpf; URINE BILIRUBIN Negative (NEGATIVE); URINE BLOOD 3+ (NEGATIVE); URINE COLOR Amber; URINE GLUCOSE Negative (NEGATIVE); URINE KETONE 1+ (NEGATIVE); URINE LEUKOCYTE ESTERASE 1+ (NEGATIVE); URINE NITRATE Negative (NEGATIVE); URINE PROTEIN(semi-quant) 2+ (NEGATIVE); URINE RBC >50 /hpf; URINE UROBILINOGEN >=4.0 mg/dL (NEGATIVE)
== END ==
LOC: ZCOL.LAB 12:03
PROVIDERS: Family Medicine
DX: G40.109 Localization-related (focal) (partial) symptomatic epilepsy and epileptic syndromes with simple partial seizures, not intractable, without status epilepticus (principal)